=== PATIENT | male | born 1955 | race Caucasian/White ===

== ENCOUNTER 2017-05-01 11:02 | Observation (INO) | payer SELFPAY ==
[~2017-05-01] VITALS: Ht 172.7 cm; Wt 100.0 kg
[2017-05-01] VITALS (8 sets, daily range): BP systolic 135–167; BP diastolic 67–98; PULSE 77–90; RESP 16–20; TEMP 97.8–98.2; O2SAT 95–97
[2017-05-01] MEDS ORDERED: METF500T PO (11:29)
[2017-05-01] MEDS ORDERED: SODIUM CHLORIDE 0.9% FLUSH 10 ML FLUSH IVF PRN (11:30)
[2017-05-01 11:38] LABS: AUTOMATED NEUTROPHIL # 2.9 TH/MM3 (1.8-7.7); EOSINOPHIL # 0.3 TH/MM3 (0-0.4); EOSINOPHIL % 5.3 % (0.0-4.0); HEMATOCRIT 44.7 % (39.0-51.0); LYMPH % 30.5 % (9.0-44.0); LYMPHOCYTE # 1.6 TH/MM3 (1.0-4.8); MEAN CELL VOLUME 90.7 FL (80.0-100.0); MEAN CORPUSCULAR HEMOGLOBIN 31.1 PG (27.0-34.0); MEAN CORPUSCULAR HGB CONC 34.3 % (32.0-36.0); NEUT % 56.2 % (16.0-70.0); PLATELET COUNT 213 TH/MM3 (150-450); RED BLOOD COUNT 4.92 MIL/MM3 (4.50-5.90); RED CELL DISTRIBUTION WIDTH 13.5 % (11.6-17.2); WHITE BLOOD COUNT 5.2 TH/MM3 (4.0-11.0)
[2017-05-01 11:39] LABS: HEMO FLAGS AUTO DIFF
[2017-05-01 11:58] LABS: ANION GAP 8 MEQ/L (5-15); AST (GOT) 13 U/L (15-37); BICARBONATE 26.6 MEQ/L (21.0-32.0); BLOOD UREA NITROGEN 10 MG/DL (7-18); CHLORIDE 104 MEQ/L (98-107); GLOMERULAR FILTRATION RATE 133 ML/MIN (>89); POTASSIUM 3.5 MEQ/L (3.5-5.1); SODIUM (NA) 139 MEQ/L (136-145)
[2017-05-01 12:00] LABS: APTT (PATIENT) 26.5 SEC (24.3-30.1); INTERNATIONAL NORMALIZED RATIO 0.9 RATIO; PROTHROMBIN TIME - PATIENT 10.1 SEC (9.8-11.6)
--- NOTE | 2017-05-01 12:01 | RADRPT ---
EXAM DATE/TIME: 05/01/2017 11:33 [facility] COMPARISON: No previous studies available for comparison. INDICATIONS : Chest pain MEDICAL HISTORY : Diabetes mellitus type II. SURGICAL HISTORY : None. ENCOUNTER: Initial ACUITY: 1 day PAIN SCORE: 5/10 LOCATION: Bilateral chest FINDINGS: A single view of the chest demonstrates the lungs to be symmetrically aerated without evidence of mas s, infiltrate or effusion. The cardiomediastinal contours are unremarkable. Osseous structures are intact. CONCLUSION: No acute disease. Igor Reynoso MD FACR on May 01, 2017 at 11:58 Board Certified Radiologist. This report was verified electronically.
[2017-05-01 12:05] LABS: ALKALINE PHOSPHATASE 88 U/L (45-117); ALT (GPT) 25 U/L (12-78); CREATINE KINASE 108 U/L (39-308); TOTAL BILIRUBIN ADULT 0.3 MG/DL (0.2-1.0)
--- NOTE | 2017-05-01 12:08 | PD ---
HPI Chief Complaint: Cardiac Complaint Time Seen by Provider: 11:22 Travel History International Travel<30 days: No Contact w/Intl Traveler<30days: No Traveled to known affect area: No History of Present Illness HPI 61-year-old male presents with feeling of like he's going to pass out and left arm heaviness. He states this started today. He states he felt fine yesterday. He denies taking an aspirin yet today. Quality is heavy. Severity is mild. He feels worse with movement. He denies other modifying factors. Duration is couple of hours. He states he's had a stress test before that was okay but that was probably 6 years ago or so. He denies any other concurrent complaints at this time. PFSH Past Medical History Diabetes: Yes Patient Takes Glucophage: No Past Surgical History Other Surgery: Yes (ureteral stent for kidney stone) Social History Alcohol Use: No Tobacco Use: Yes Substance Use: No Allergies-Medications (Allergen,Severity, Reaction): Coded Allergies: No Known Allergies (Unverified , 05/01/17) Reported Meds & Prescriptions Reported Meds & Active Scripts Active Reported Metformin (Metformin HCl) 500 Mg Tab 500 Mg PO BIDPC With meals Review of Systems Except as stated in HPI: all other systems reviewed are Neg Physical Exam Narrative GENERAL: Well-nourished, well-developed patient. SKIN: Warm and dry. HEAD: Normocephalic and atraumatic. EYES: No injection or drainage. ENT: No nasal drainage noted. NECK: Supple, trachea midline. CARDIOVASCULAR: Regular rate and rhythm RESPIRATORY: Breath sounds equal bilaterally. No accessory muscle use. GASTROINTESTINAL: Abdomen soft, non-tender, nondistended. EXTREMITIES: No edema. NEUROLOGICAL: Awake and alert. moves all extremities. Normal speech. Data Data Last Documented VS Vital Signs Date Time Temp Pulse Resp B/P Pulse Ox O2 Delivery O2 Flow Rate FiO2 05/01/17 12:42 77 20 137/77 05/01/17 11:18 96 05/01/17 11:03 97.8 Orders Electrocardiogram (05/01/17 ) Electrocardiogram (05/01/17 11:16) Ckmb (Isoenzyme) Profile (05/01/17 11:16) Complete Blood Count With Diff (05/01/17 11:16) Comprehensive Metabolic Panel (05/01/17 11:16) Magnesium (Mg) (05/01/17 11:16) Prothrombin Time / Inr (Pt) (05/01/17 11:16) Act Partial Throm Time (Ptt) (05/01/17 11:16) Troponin I (05/01/17 11:16) Chest, Single Ap (05/01/17 11:16) Ecg Monitoring (05/01/17 11:16) Bilateral Bp Monitoring (05/01/17 11:16) Iv Access Insert/Monitor (05/01/17 11:16) Oximetry (05/01/17 11:16) Sodium Chloride 0.9% Flush (Ns Flush) (05/01/17 11:30) D-Dimer (05/01/17 11:26) Aspirin (Aspirin) (05/01/17 12:15) CKMB (05/01/17 11:25) CKMB% (05/01/17 11:25) Admit Order (Ed Use Only) (05/01/17 12:43) Labs Laboratory Tests Test 05/01/17 11:25 White Blood Count 5.2 TH/MM3 Red Blood Count 4.92 MIL/MM3 Hemoglobin 15.3 GM/DL Hematocrit 44.7 % Mean Corpuscular Volume 90.7 FL Mean Corpuscular Hemoglobin 31.1 PG Mean Corpuscular Hemoglobin 34.3 % Concent Red Cell Distribution Width 13.5 % Platelet Count 213 TH/MM3 Mean Platelet Volume 7.0 FL Neutrophils (%) (Auto) 56.2 % Lymphocytes (%) (Auto) 30.5 % Monocytes (%) (Auto) 7.0 % Eosinophils (%) (Auto) 5.3 % Basophils (%) (Auto) 1.0 % Neutrophils # (Auto) 2.9 TH/MM3 Lymphocytes # (Auto) 1.6 TH/MM3 Monocytes # (Auto) 0.4 TH/MM3 Eosinophils # (Auto) 0.3 TH/MM3 Basophils # (Auto) 0.0 TH/MM3 CBC Comment AUTO DIFF Differential Comment AUTO DIFF CONFIRMED Prothrombin Time 10.1 SEC Prothromb Time International 0.9 RATIO Ratio Activated Partial 26.5 SEC Thromboplast Time D-Dimer Quantitative (PE/DVT) 0.40 MG/L FEU Sodium Level 139 MEQ/L Potassium Level 3.5 MEQ/L Chloride Level 104 MEQ/L Carbon Dioxide Level 26.6 MEQ/L Anion Gap 8 MEQ/L Blood Urea Nitrogen 10 MG/DL Creatinine 0.62 MG/DL Estimat Glomerular Filtration 133 ML/MIN Rate Random Glucose 207 MG/DL Calcium Level 8.9 MG/DL Magnesium Level 2.0 MG/DL Total Bilirubin 0.3 MG/DL Aspartate Amino Transf 13 U/L (AST/SGOT) Alanine Aminotransferase 25 U/L (ALT/SGPT) Alkaline Phosphatase 88 U/L Total Creatine Kinase 108 U/L Creatine Kinase MB 1.0 NG/ML Troponin I LESS THAN 0.02 NG/ML Total Protein 7.0 GM/DL Albumin 3.4 GM/DL MDM Medical Decision Making Medical Screen Exam Complete: Yes Emergency Medical Condition: Yes Medical Record Reviewed: No (no records here) Interpretation(s) EKG was sinus rhythm, right bundle branch block, no STEMI CBC & BMP Diagram 05/01/17 11:25 Last 24 hours Impressions Chest X-Ray 05/01/17 1116 Signed Impressions: Service Date/Time: Monday, May 01, 2017 11:33 - CONCLUSION: No acute disease. Igor Reynoso MD FACR Differential Diagnosis OK, PE, gastritis, costochondritis, musculoskeletal Narrative Course will check labs, cxr and dose with aspirin and reeval ed workup no acute, agrees to [facility] observation Diagnosis Primary Impression: Chest pain Qualified Code: R07.9 - Chest pain, unspecified type Hafsa Quezada MD May 01, 2017 12:07
[2017-05-01] MEDS ORDERED: ASPIRIN 325 MG TAB PO ONE (12:15)
[2017-05-01 12:18] LABS: SCAN/DIFF AUTO DIFF CONFIRMED
--- NOTE | 2017-05-01 14:27 | EKG ---
Date Performed: 05/01/2017 Time Performed: 11:18:59 PTAGE: 61 years EKG: Sinus rhythm RIGHT BUNDLE BRANCH BLOCK ABNORMAL ECG NO PREVIOUS TRACING DOCTOR: [place] Interpretating Date/Time 05/01/2017 14:25:56
[2017-05-01] MEDS ORDERED: SODIUM CHLORIDE 0.9% FLUSH 10 ML FLUSH IV FLUSH PRN (14:45)
[2017-05-01] MEDS ORDERED: ALPRAZolam 0.25 MG TAB PO PRN (14:45)
[2017-05-01] MEDS ORDERED: ACETAMINOPHEN/HYDROcodone 325 MG/7.5 MG TAB PO PRN (14:45)
[2017-05-01] MEDS ORDERED: ACETAMINOPHEN 500 MG CPLT PO PRN (14:45)
[2017-05-01] MEDS ORDERED: ONDANSETRON HCL 4 MG/2 ML VIAL IV PRN (14:45)
--- NOTE | 2017-05-01 15:44 | HHI.HP ---
HPI Primary Care Physician No Primary Care Physician Chief Complaint Chest pain History of Present Illness This is a 61-year-old male that presents to the ED via private vehicle complaining of becoming lightheaded and nauseous when he went to stand from a seated position. Became short of breath and developed a left arm ache. The symptom lasted 1 hour. There was no emesis. No diaphoresis. Denies history of CAD but states that he coded while having a procedure in January before coming to this area. States he was having a urologic procedure for kidney stone. He has no idea of any further specifics related to this admission. He has not followed up with urologist and cannot recall prior cardiac workup during that admission. 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 He is currently asymptomatic. Review of Systems General: Patient denies fevers, chills recent, and recent travel HEENT: Patient denies headache, sore throat, difficulty swallowing. Cardiovascular: Has the chest discomfort as mentioned above. Denies sensation of heart beating rapidly or irregularly. No syncope. Denies diaphoresis. Respiratory: He was short of breath. Denies inspirational chest discomfort. Denies coughing wheezing or hemoptysis. GI: He was nauseous. Patient denies vomiting, diarrhea, abdominal pain, bloody stools. Musculoskeletal: Patient denies joint pain or edema. Denies calf pain or edema. Neurovascular: He felt lightheaded. Patient denies numbness, tingling, weakness in extremities. Denies headache. Endocrine: Denies polyuria and polydipsia. Hematologic: Denies easy bruising. Skin: Denies rash or itching. Past Family Social History Allergies: Coded Allergies: No Known Allergies (Unverified , 05/01/17) Past Medical History Diabetes. Kidney stones and states that he had a procedure in January but he does not know what the procedure was. States that he coded during that procedure but does not know the specifics of that as well. Reported Medications Reported Meds & Active Scripts Active Reported Metformin (Metformin HCl) 500 Mg Tab 500 Mg PO BIDPC With meals Active Ordered Medications Current Medications Medications (Trade) Dose Ordered Sig/Bryan Route Start Time Stop Time Status Last Admin (NS Flush) 2 ml UNSCH PRN IV FLUSH 05/01/17 14:45 (NS Flush) 2 ml BID IV FLUSH 05/01/17 21:00 (Tylenol) 500 mg Q4H PRN PO 05/01/17 14:45 ([place] 7.5-325 Mg) 1 tab Q4H PRN PO 05/01/17 14:45 (Zofran Inj) 4 mg Q6H PRN IV 05/01/17 14:45 (Protonix) 40 mg DAILY PO 05/01/17 15:00 (Aspirin) 325 mg DAILY PO 05/02/17 09:00 (Xanax) 0.25 mg Q8H PRN PO 05/01/17 14:45 Family History Denies family history of CAD. Social History Patient smokes one pack of cigarettes daily for 40 years. Denies alcohol or illicit drugs. Physical Exam Vital Signs Vital Signs Date Time Temp Pulse Resp B/P Pulse Ox O2 Delivery O2 Flow Rate FiO2 05/01/17 12:42 77 20 137/77 05/01/17 11:18 88 20 145/86 05/01/17 11:18 96 05/01/17 11:18 84 05/01/17 11:03 97.8 90 16 167/98 95 Physical Exam GENERAL: This is a well-nourished, well-developed patient, in no apparent distress. Patient speaks in clear complete sentences. Patient is pleasant. HEENT: Head is atraumatic and normocephalic. Neck is supple without lymphadenopathy and trachea is midline. No JVD or carotid bruits. CARDIOVASCULAR: Regular rate and rhythm without murmurs, gallops, or rubs. RESPIRATORY: Clear to auscultation. Breath sounds equal bilaterally. No wheezes , rales, or rhonchi. Chest wall is nontender. No use of accessory muscles. GASTROINTESTINAL: Abdomen is nontender, nondistended. Abdomen soft. No obvious pulsatile mass or bruit. No CVA tenderness. Strong femoral pulses bilaterally. Normal bowel sounds in all quadrants. MUSCULOSKELETAL: Patient is moving upper and lower extremities freely. No calf tenderness or edema, no Homans sign. Strong pulses in upper and lower extremities. NEUROLOGICAL: Patient is alert and oriented. Cranial nerves 2-12 are grossly intact. No focal deficits and speech is clear. SKIN: No rash and turgor is normal. Laboratory Laboratory Tests Test 05/01/17 11:25 White Blood Count 5.2 Red Blood Count 4.92 Hemoglobin 15.3 Hematocrit 44.7 Mean Corpuscular Volume 90.7 Mean Corpuscular Hemoglobin 31.1 Mean Corpuscular Hemoglobin 34.3 Concent Red Cell Distribution Width 13.5 Platelet Count 213 Mean Platelet Volume 7.0 Neutrophils (%) (Auto) 56.2 Lymphocytes (%) (Auto) 30.5 Monocytes (%) (Auto) 7.0 Eosinophils (%) (Auto) 5.3 Basophils (%) (Auto) 1.0 Neutrophils # (Auto) 2.9 Lymphocytes # (Auto) 1.6 Monocytes # (Auto) 0.4 Eosinophils # (Auto) 0.3 Basophils # (Auto) 0.0 CBC Comment AUTO DIFF Differential Comment AUTO DIFF CONFIRMED Prothrombin Time 10.1 Prothromb Time International 0.9 Ratio Activated Partial 26.5 Thromboplast Time D-Dimer Quantitative (PE/DVT) 0.40 Sodium Level 139 Potassium Level 3.5 Chloride Level 104 Carbon Dioxide Level 26.6 Anion Gap 8 Blood Urea Nitrogen 10 Creatinine 0.62 Estimat Glomerular Filtration 133 Rate Random Glucose 207 Calcium Level 8.9 Magnesium Level 2.0 Total Bilirubin 0.3 Aspartate Amino Transf 13 (AST/SGOT) Alanine Aminotransferase 25 (ALT/SGPT) Alkaline Phosphatase 88 Total Creatine Kinase 108 Creatine Kinase MB 1.0 Troponin I LESS THAN 0.02 Total Protein 7.0 Albumin 3.4 Result Diagram: 05/01/17 1125 05/01/17 1125 Imaging Last Impressions Chest X-Ray 05/01/17 1116 Signed Impressions: Service Date/Time: Monday, May 01, 2017 11:33 - CONCLUSION: No acute disease. Igor Reynoso MD FACR Course Initial EKG has right bundle-branch block without significant ST segment depressions or elevations. Assessment and Plan Assessment and Plan * Chest pain: Patient will continue to have serial cardiac enzymes and EKGs for ruling out purposes. He has been seen by Dr. Ranjit Pelletier of cardiology in the chest pain center and will have a Lexiscan in the morning if he does rule out. We will also attempt to get the records from his hospitalization in January. Patient will need to arrange outpatient follow-up. * Diabetes: We'll hold his metformin at this time resume at discharge. Will cover with sliding scale insulin coverage. I also explained to the patient he should be on an SEBASTIÁN inhibitor and cholesterol medicine prophylactically. I asked if he had ever been placed on his medications and if so why would a canceled. He is not sure feels all his medications or not and doesn't know he had any problems medications. He will need to have outpatient follow-up discuss this with local physician. * Kidney stones: Follow-up on outpatient basis with PCP or urologist when necessary. * Tobacco abuse: Patient has been counseled on importance smoking cessation. Patient is stable at this time. He is agreeable to this plan. Quinton Pena May 01, 2017 15:44
[2017-05-01 15:47] LABS: CREATINE KINASE 84 U/L (39-308)
[2017-05-01] MEDS: PANTOPRAZOLE SOD 40 MG DELAYED RELEASE TAB PO SCH (15:58)
[2017-05-01] MEDS ORDERED: MORPHINE SULFATE 4 MG/ML INJ IV PUSH PRN (16:00)
[2017-05-01] MEDS ORDERED: DEXTROSE 50% IN WATER 50 ML VIAL(D50) IV PRN (17:00)
[2017-05-01] MEDS ORDERED: cloNIDine HCL 0.1 MG TAB PO PRN (17:00)
[2017-05-01] MEDS ORDERED: RESP: ALBUTEROL 2.5 MG/IPRATROPIUM 0.5 MG NEB (PRN) INH (17:00)
[2017-05-01] MEDS ORDERED: GLUCAGON 1 MG/ML VIAL IM/SQ PRN (17:00)
[2017-05-01 18:34] LABS: CREATINE KINASE 73 U/L (39-308)
[2017-05-01] MEDS: INSULIN ASPART SUPPLEMENTAL SCALE SQ SCH ×2 (19:04→21:07)
[2017-05-01] MEDS: SODIUM CHLORIDE 0.9% FLUSH 10 ML FLUSH IV FLUSH SCH (21:01)
[2017-05-02] VITALS: PULSE 72
[2017-05-02 03:24] VITALS: BP 144/67; PULSE 83; RESP 19; TEMP 98.2; O2SAT 96
[2017-05-02 04:00] VITALS: PULSE 72
[2017-05-02] MEDS: INSULIN ASPART SUPPLEMENTAL SCALE SQ SCH ×2 (06:40→13:27)
--- NOTE | 2017-05-02 07:04 | EKG ---
Date Performed: 05/01/2017 Time Performed: 17:42:11 PTAGE: 61 years EKG: Sinus rhythm RIGHT BUNDLE BRANCH BLOCK ABNORMAL ECG NO SIGNIFICANT CHANGE FROM PRIOR ELECTROCARDIOGRAM. PREVIOUS TRACING : 05/01/2017 14.41 DOCTOR: [place] Interpretating Date/Time 05/02/2017 07:03:24
[2017-05-02 08:00] VITALS: PULSE 72
[2017-05-02 08:14] VITALS: BP 129/77; PULSE 75; RESP 18; TEMP 98.4; O2SAT 96
[2017-05-02] MEDS ORDERED: ASPIRIN 325 MG TAB PO SCH (09:00)
[2017-05-02] MEDS ORDERED: REGADENOSON INJ 0.4 MG/5 ML SYR ONE (10:57)
[2017-05-02] MEDS: SODIUM CHLORIDE 0.9% FLUSH 10 ML FLUSH IV FLUSH SCH (12:29)
[2017-05-02] MEDS: PANTOPRAZOLE SOD 40 MG DELAYED RELEASE TAB PO SCH (12:29)
--- NOTE | 2017-05-02 12:31 | RADRPT ---
EXAM DATE/TIME: 05/02/2017 10:33 [facility] COMPARISON: No previous studies available for comparison. INDICATIONS : Substernal chest pain with nausea, dyspnea and lightheaded. Angina. DOSE: 35 mCi Tc99m Myoview at stress. 11 mCi Tc99m Myoview at rest. 0.4 mg Lexiscan STRESS SYMPTOMS: Dyspnea. EJECTION FRACTION: 58% MEDICAL HISTORY : Hypertension. Diabetes mellitus type 2. SURGICAL HISTORY : None. ENCOUNTER: Initial ACUITY: 1 day PAIN SCALE: 5/10 LOCATION: Substernal chest TECHNIQUE: The patient underwent pharmacologic stress with infusion of prescribed dose. Continuous ECG tracing was monitored during stress. Gated SPECT imaging was performed after stress and conventional SPECT i maging was performed at rest. The examination was performed on a SPECT/CT scanner, both attenuation and non-corrected datasets were reviewed. FINDINGS: DISTRIBUTION: The maximum perfused segment at stress is in the anterolateral wall. PERFUSION STUDY: The pattern of perfusion at stress is within normal limits. GATED STUDY: There is intact wall motion and thickening without hypokinetic or dyskinetic segments. CONCLUSION: 1. No significant reversibility to suggest ischemia. 2. Normal wall motion with ejection fraction 58%. RISK CATEGORY: Low (<1% Annual Mortality Rate) Tung Lagos MD on May 02, 2017 at 12:26 Board Certified Radiologist. This report was verified electronically.
[2017-05-02 13:04] VITALS: BP 153/87; PULSE 80; RESP 19; TEMP 97.8; O2SAT 97
[2017-05-02] MEDS ORDERED: METF500T PO (13:04)
--- NOTE | 2017-05-02 13:04 | HHI.DCPOC ---
Discharge Care Plan Diagnosis: (1) Atypical chest pain (2) Type 2 diabetes mellitus Goals to Promote Your Health * To prevent worsening of your condition and complications * To maintain your health at the optimal level Directions to Meet Your Goals Take your medications as prescribed Follow your dietary instruction Follow activity as directed Keep your appointments as scheduled Take your immunizations and boosters as scheduled If your symptoms worsen call your PCP, if no PCP go to Urgent Care Center or Emergency Room Smoking is Dangerous to Your Health. Avoid second hand smoke Call the 24-hour hour crisis hotline for domestic abuse at [place] May 02, 2017 13:04
--- NOTE | 2017-05-06 07:34 | EKG ---
Date Performed: 05/01/2017 Time Performed: 14:41:14 PTAGE: 61 years EKG: Sinus rhythm RIGHT BUNDLE BRANCH BLOCK ABNORMAL ECG PREVIOUS TRACING : 05/01/2017 11.18 Since previous tracing, no significant change noted DOCTOR: Ranjit Pelletier Interpretating Date/Time 05/06/2017 07:31:36
--- NOTE | 2017-05-06 07:39 | TR ---
Date Performed: 05/02/2017 Time Performed: 11:12:52 DOCTOR: Ranjit Pelletier DRUG LIST: CLINICAL HISTORY: CHEST PAIN REASON FOR TEST: CHEST PAIN REASON FOR ENDING: OBSERVATION: CONCLUSION: Lexiscan stress test was performed under standard four minute protocol. [place] e was injected one minute prior to ending the test. No electrocardiographic abormalities were present to suggest ischemia. Nuclear imaging and interpretation are pending. COMMENTS:
== END 2017-05-02 17:10 | disposition home or self-care (01) ==
LOC: NEPE 11:02 → NEDA 12:46 → NEPHCDU 14:31
PROVIDERS: ADMIT Internal Medicine Cardiovascular Disease; ATTEND Internal Medicine Cardiovascular Disease
DX: R07.89 Other chest pain (principal); E11.9 Type 2 diabetes mellitus without complications; N20.0 Calculus of kidney; F17.210 Nicotine dependence, cigarettes, uncomplicated; R11.0 Nausea; R42 Dizziness and giddiness; R06.02 Shortness of breath; M79.602 Pain in left arm; Z59.0 Homelessness; Z79.84 Long term (current) use of oral hypoglycemic drugs; I45.10 Unspecified right bundle-branch block; R07.2 Precordial pain; I20.9 Angina pectoris, unspecified; R06.00 Dyspnea, unspecified; I10 Essential (primary) hypertension; R94.31 Abnormal electrocardiogram [ECG] [EKG]
CPT/HCPCS: 71010; 78452; 80053; 82550; 82552; 82948; 83735; 84484; 85025; 85379; 85610; 85730; 93005; 93017; 99285; A9502; G0378; J1815; J2270; J2785